=== PATIENT | male | born 1975 | race Caucasian/White ===

== ENCOUNTER 2017-01-17 17:03 | Inpatient (IN) | payer MEDICAID ==
[~2017-01-17] VITALS: Ht 177.8 cm; Wt 113.0 kg
--- NOTE | 2017-01-17 17:11 | NUR ---
EKG IN PROGRESS
--- NOTE | 2017-01-17 17:17 | NUR ---
BLOOD SUGAR 175
--- NOTE | 2017-01-17 17:19 | NUR ---
PT IS AAOX4, RESP EVEN AND UNLABORED, RA. NO SIGN OF DISTRESS. PT TO WAIT IN LOBBY DUE TO NO BED AVAILIBLE AT THIS TIME. VS STABLE
--- NOTE | 2017-01-17 17:35 | NUR ---
PT CAME TO ED TODAY W/ COMPLAINT OF CHEST PRESSURE. PER PT, HE BEGAN HAVING EPIGASTRIC ABD PAIN EARLY THIS AM. ABOUT 6 HOURS AGO PT BEGAN HAVING NON-RADIATING SUBSTERNAL CHEST PRESSURE. PT REPORTS DIZZINESS AND NAUSEA, DENIES VOMITING. PT IS A&O X 4, BREATHING EVEN AND UNLABORED, WITH NO VISUAL SIGNS OF ACUTE OR RESP DISTRESS NOTED. MSE COMPLETED BY DR STOCK. PT GOWNED AND PLACED ON FULL MONITORS.
[2017-01-17 18:02] LABS: BASOPHIL % 0.5 % (0-2); PLATELET COUNT 298 x10^3mcL (130-400); RED CELL DISTRIBUTION WIDTH 13.6 % (11.5-14.5)
[2017-01-17 18:12] LABS: CALCIUM 9.4 mg/dL (8.5-10.1); CARBON DIOXIDE 24.8 mmol/L (21-32); CHLORIDE SERUM 101 mmol/L (98-107); CREATININE SERUM 0.9 mg/dL (0.7-1.3); GFR1 > 60 mL/min; GLUCOSE SERUM 184 mg/dL (74-106); POTASSIUM SERUM 3.1 mmol/L (3.5-5.1); SODIUM SERUM 139 mmol/L (136-145)
[2017-01-17 18:16] LABS: ALBUMIN 4.4 g/dL (3.4-5.0); ALKALINE PHOSPHATASE 84 U/L (46-116); ALT/SGPT 45 U/L (16-63); AST/SGOT 34 U/L (15-37); BILIRUBIN TOTAL 0.77 mg/dL (0.20-1.00); TOTAL PROTEIN, SERUM 7.9 g/dL (6.4-8.2)
--- NOTE | 2017-01-17 19:08 | NUR ---
PT RANG CALL LIGHT, SITTING UP ON GURNEY AT THIS TIME AND STATES THAT HE'S FEELING NAUSEATED, DIZZY, AND "LIKE I HAVE PANIC." REASSURED PT OF HIS WELLBEING, ADVISED HIM NOT TO ATTEMPT TO STAND UP AT THIS TIME. DR STOCK INFORMED.
--- NOTE | 2017-01-17 19:12 | NUR ---
REPORT GIVEN TO TAVO Barriga RN, AND CARE ENDORSED FOR THIS PT.
--- NOTE | 2017-01-17 19:26 | NUR ---
RECEIVED REPROT FROM SUPRIYA BARKSDALE TO ASSUME CARE OF PT.
--- NOTE | 2017-01-17 19:27 | NUR ---
ENTERED PTS ROOM TO FIND HIM LEANED OVER WITH HIS FACE IN AN EMESIS BAD. PTS EYES WERE BLOODSHOT AND HIS NOSE WAS BLEEDING. PT STATING HE FELT NAUSEATED. INFORMED.
[2017-01-17] MEDS ORDERED: METFORMIN HCL850 MG PO (20:02)
[2017-01-17] MEDS ORDERED: GLUCOTROL10 MG PO (20:02)
--- NOTE | 2017-01-17 20:55 | NUR ---
PATIENT CAME FROM ED,VIA STRETCHER,ALERT AND ORIENTED.TO ROOM 254 A AND MADE COMFORTABLE,QUICK START INITIATED.
--- NOTE | 2017-01-17 20:56 | NUR ---
NO ADMIT ORDER YET,WILL FOLLOW UP WITH DR HOFF.
[2017-01-17 21:23] VITALS: BP 146/91
--- NOTE | 2017-01-17 21:29 | NUR ---
REECIEVED PATIENT FROM ED VIA DANIELLE, PATIENT WITH NO C/O PAIN AT THIS TIME, ALERT AND ORIENTED, ORIENTED PATIENT TO ROOM AND SURROUNDINGS, BED IN LOW POSITION, BED RAILS UP X 2, CALL LIGHT WITHIN REACH, WILL ENDORSE CARE TO JANN BARKSDALE
[2017-01-17 21:42] VITALS: BP 146/91
[2017-01-17 21:45] LABS: CHOLESTEROL/HDL RATIO 5.7
[2017-01-17 21:51] LABS: FREE T4 1.03 ng/dL (0.76-1.46); FREE THYROXINE INDEX 3.2 ug/dL (1.4-4.5); T4(THYROXINE) 10.1 ug/dL (4.7-13.3)
--- NOTE | 2017-01-17 22:05 | NUR ---
NEW ORDER NOTED,K+ AND LOPRESSOR AND NS INITIATED.US LOWER EXT IS BEING DONE AT BEDSIDE NOW.
[2017-01-17 22:18] LABS: T3 TOTAL 1.49 ng/mL
--- NOTE | 2017-01-18 01:53 | NUR ---
NS AT 50 CC/ HOUR INFUSING WELL RAC.ALL STAT MEDS GIVEN LAST NOC WITH NO INCIDENT.CALL LIGHT IN REACH.
--- NOTE | 2017-01-18 04:45 | NUR ---
REMINDED NEED UA FOR LAB.NONE DONE IN ER.
[2017-01-18 05:57] VITALS: BP 108/69
--- NOTE | 2017-01-18 06:18 | NUR ---
U A SENT TO LAB UDS.AMBULATORY RESTROOM.WILL ENDORSE TO NEXT SHIFT.
[2017-01-18 06:44] LABS: BASOPHIL % 0.6 % (0-2); PLATELET COUNT 278 x10^3mcL (130-400); RED CELL DISTRIBUTION WIDTH 13.4 % (11.5-14.5)
[2017-01-18 07:07] LABS: UA SPECIFIC GRAVITY 1.025 (1.005-1.035); microscopic required? YES; urine erythrocyte NEGATIVE (NEGATIVE)
--- NOTE | 2017-01-18 07:20 | NUR ---
RECEIVED Pt. AAOX4. RESPIRATIONS EVEN AND UNLABORED. DENIES PAIN/DISCOMFORT. DENIES CHEST PAIN/PRESSURE AT THIS TIME. NO DISTRESS NOTED. TELE [address] NSR HR 71. NS RUNNING TO IV AT RIGHT AC PATENT AND INTACT. BED LOW/LOCKED. CALL LIGHT IN REACH.
[2017-01-18 07:43] LABS: CALCIUM 8.9 mg/dL (8.5-10.1); CARBON DIOXIDE 25.5 mmol/L (21-32); CHLORIDE SERUM 102 mmol/L (98-107); CREATININE SERUM 0.7 mg/dL (0.7-1.3); GFR1 > 60 mL/min; GLUCOSE SERUM 239 mg/dL (74-106); MAGNESIUM 1.9 mg/dL (1.8-2.4); PHOSPHOROUS 3.9 mg/dL (2.5-4.9); POTASSIUM SERUM 4.3 mmol/L (3.5-5.1); SODIUM SERUM 138 mmol/L (136-145)
[2017-01-18 08:11] LABS: AMPHETAMINE QUAL UR NONE DETECTED (NEG <=1000)
--- NOTE | 2017-01-18 08:25 | NUR ---
MADE ROUNDS WITH DR. COX AND MEDICINE TEAM, Pt. TO HAVE CARDIOLOGY CONSULT AND AGREED WITH PLAN OF CARE.
[2017-01-18 09:31] VITALS: BP 126/79
--- NOTE | 2017-01-18 10:04 | NUR ---
Pt. C/O FEELING ANXIOUS, DR. VANN MADE AWARE.
--- NOTE | 2017-01-18 12:00 | NUR ---
Pt. DENIES FEELING ANXIOUS POST ATIVAN.
[2017-01-18 14:05] VITALS: BP 121/72
--- NOTE | 2017-01-18 15:00 | NUR ---
Pt. NOTED AMBULATING AROUND HALLWAYS WITH STEADY GAIT NOTED.
[2017-01-18 16:41] VITALS: BP 118/72
--- NOTE | 2017-01-18 18:37 | NUR ---
Pt. AAOX4. RESPIRATIONS EVEN AND UNLABORED. DENIES PAIN/DISCOMFORT. DENIES CHEST PAIN/PRESSURE. NO DISTRESS NOTED. IV RUNNING TO IV AT RIGHT AC PATENT AND INTACT. TELE IN PLACE.BED LOW/LOCKED. CALL LIGHT IN REACH.
--- NOTE | 2017-01-18 20:04 | NUR ---
RECEIVED PT FROM PREVIOUS SHIFT NURSE. TELE #16, SR, HR 68. PULSES GOOD, NO EDEMA NOTED. LUNG SOUNDS CLEAR, ON RA. DENIES SOB/ DIFFICULTY BREATHING. BOWEL SOUNDS ACTIVE. PT AMBULATORY. SKIN INTACT. IV IN RAC, INTACT AND PATENT. BED IN LOWEST POSITION. CALL LIGHT WITHIN REACH. WILL CONTINUE TO MONITOR.
[2017-01-18 21:40] VITALS: BP 127/79
--- NOTE | 2017-01-19 03:45 | NUR ---
PT RESTING IN BED. RR EVEN AND UNLABORED. NO ACUTE DISTRESS NOTED. BED IN LOWEST POSITION. CALL LIGHT WITHIN REACH. WILL CONTINUE TO MONITOR.
[2017-01-19 06:12] VITALS: BP 115/68
[2017-01-19 06:52] LABS: CALCIUM 9.1 mg/dL (8.5-10.1); CHLORIDE SERUM 104 mmol/L (98-107); CREATININE SERUM 0.7 mg/dL (0.7-1.3); GFR1 > 60 mL/min; GLUCOSE SERUM 203 mg/dL (74-106); POTASSIUM SERUM 4.2 mmol/L (3.5-5.1); SODIUM SERUM 139 mmol/L (136-145)
[2017-01-19 06:57] LABS: BASOPHIL % 0.6 % (0-2); PLATELET COUNT 258 x10^3mcL (130-400); RED CELL DISTRIBUTION WIDTH 13.4 % (11.5-14.5)
--- NOTE | 2017-01-19 07:05 | NUR ---
RECEIVED Pt. AAOX4. RESPIRATIONS EVEN AND UNLABORED. DENIES PAIN/DISCOMFORT. DENIES CHEST PAIN/PRESSURE. TELE IN PLACE NSR HR 72. IVF RUNNING TO IV AT RIGHT AC PATENT AND INTACT. BED LOW/LOCKED. CALL LIGHT IN REACH.
--- NOTE | 2017-01-19 08:20 | NUR ---
MADE ROUNDS WITH DR. COX AND MEDICINE TEAM, Pt. POSSIBLE DISCHARGE TODAY AND AGREED WITH PLAN OF CARE.
[2017-01-19 10:00] VITALS: BP 119/76
[2017-01-19] MEDS ORDERED: TRICOR48 M1 PO (12:34)
[2017-01-19] MEDS ORDERED: LIPI10 PO (12:34)
[2017-01-19] MEDS ORDERED: ACT15 PO (12:36)
[2017-01-19] MEDS ORDERED: METOPROLOL TART25 M1 PO (12:38)
[2017-01-19] MEDS ORDERED: LORAZEPAM0.5 MG PO (13:26)
--- NOTE | 2017-01-19 13:31 | NUR ---
Pt. C/O ANXIETY, ATIVAN GIVEN.
[2017-01-19 13:50] VITALS: BP 119/76
[2017-01-19 14:22] VITALS: BP 120/78
--- NOTE | 2017-01-19 14:56 | NUR ---
Pt. AAOX4. RESPIRATIONS EVEN AND UNLABORED. DENIES PAIN/DISCOMFORT. DENIES CHEST PAIN/PRESSURE. DENIES ANXIETY AT THIS TIME. ALL RX AND DISCHARGE INSTRUCTIONS EXPLAINED TO Pt. AND VERBALIZED UNDERSTANDING. TELE 16 RETURNED AND IV AT RIGHT AC REMOVED WITH CATH INTACT. Pt. LEFT WITH ALL BELONGINGS.
== END 2017-01-19 15:00 | disposition home or self-care (01) | DRG 243 ==
LOC: ED 17:03 → DU 19:28
PROVIDERS: Emergency Medicine; Family Medicine; ADMIT Family Medicine
DX: K21.9 Gastro-esophageal reflux disease without esophagitis (principal); N17.0 Acute kidney failure with tubular necrosis; D68.69 Other thrombophilia; E11.65 Type 2 diabetes mellitus with hyperglycemia; E11.59 Type 2 diabetes mellitus with other circulatory complications; E87.6 Hypokalemia; I10 Essential (primary) hypertension; I51.7 Cardiomegaly; E78.5 Hyperlipidemia, unspecified; Z68.30 Body mass index [BMI] 30.0-30.9, adult; Z79.84 Long term (current) use of oral hypoglycemic drugs
CPT/HCPCS: 80307; 82962; 83880; 84439; G0480; J2060; J3010; J7030; Q0092

== ENCOUNTER 2017-06-10 00:16 | Emergency (ER) | payer MEDICAID ==
[~2017-06-10] VITALS: Ht 182.9 cm; Wt 99.8 kg
[~2017-06-10 00:16] MED LIST: ACT15 PO; GLUCOTROL10 MG PO; LIPI10 PO; LORAZEPAM0.5 MG PO; METFORMIN HCL850 MG PO; METOPROLOL TART25 M1 PO; TRICOR48 M1 PO
[2017-06-10 03:59] VITALS: BP 155/76
== END 2017-06-10 03:59 | disposition home or self-care (01) ==
LOC: ED 00:16
DX: I10 Essential (primary) hypertension (principal); E11.9 Type 2 diabetes mellitus without complications; E78.00 Pure hypercholesterolemia, unspecified
CPT/HCPCS: 36415

== ENCOUNTER 2017-11-04 19:01 | Emergency (ER) | payer MEDICAID ==
[~2017-11-04] VITALS: Ht 180.3 cm; Wt 95.2 kg
[2017-11-04 20:19] VITALS: Ht 180.3 cm; Wt 95.2 kg
[2017-11-04 20:50] VITALS: BP 170/94
== END 2017-11-04 21:13 | disposition home or self-care (01) ==
LOC: ED 19:01
DX: I10 Essential (primary) hypertension (principal)
CPT/HCPCS: 82962

== ENCOUNTER 2019-01-26 09:10 | Emergency (ER) | payer MEDICAID ==
[~2019-01-26] VITALS: Ht 177.8 cm; Wt 103.9 kg
[2019-01-26 09:15] VITALS: Ht 177.8 cm; Wt 103.9 kg
[2019-01-26 09:43] VITALS: BP 141/87
== END 2019-01-26 09:43 | disposition home or self-care (01) ==
LOC: ED 09:10
DX: H60.92 Unspecified otitis externa, left ear (principal); H60.12 Cellulitis of left external ear; I10 Essential (primary) hypertension; E11.9 Type 2 diabetes mellitus without complications; E78.00 Pure hypercholesterolemia, unspecified